=== PATIENT | female | born 1985 | race Caucasian/White ===

== ENCOUNTER → 2018-03-11 15:21 | Outpatient (CLI) | payer OTHER, SELFPAY ==
[2018-03-11 14:27] VITALS: BMI 20.2
[2018-03-11 15:52] LABS: Absolute Neutrophil Count 7.3 X10^3/uL (2.0-7.7); Basophil# 0.01 X10^3/uL; Basophil% 0.1 % (0-1); Eosinophil# 0.04 X10^3/uL; Eosinophils% 0.4 % (0-5); Hematocrit 35.4 % (37-47); Hemoglobin 12.5 g/dl (12.0-15.0); Lymphocyte % 20.1 % (19-41); Mean Corp Hgb Conc 35.3 g/gl (32-36); Mean Corpuscular Volume 87.8 fL (81-99); Mean Platelet Vol. 9.8 fl (6.2-12.0); Monocyte# 0.54 X10^3/uL; Monocyte% 5.4 % (0-10); Neutrophil # 7.33 X10^3/uL (2.7-7.7); Neutrophil % 73.9 % (47-70); Platelet Count 190 K/mm3 (150-450); RBC Distribution Width SD 45.1 fl (35.1-43.9); Red Blood Count 4.03 M/mm3 (4.2-5.4); White Blood Count 9.9 K/mm3 (4.4-11.0)
[2018-03-11 15:55] LABS: POSITIVE COUNT NO; POSITIVE DIFFERENTIAL NO; POSITIVE MORPHOLOGY NO
[2018-03-11 20:07] LABS: Chlamydia Trachomatis by PCR Negative (Negative); Neisserai gonorrhoeae by PCR Negative (Negative); Probe Check PASS; Sample Adequacy Control PASS; Specimen Processing Control PASS
[2018-03-12 00:13] LABS: HIV - WCH Non-Reactive (Nonreactive); Rubella IgG > 500.0 IU/mL
[2018-03-12 04:55] LABS: Rapid Plasmin Reagin (RPR) NONREACTIVE (NONREACTIVE)
[2018-03-15 11:34] LABS: HEPATITIS B SURFACE AG Negative (Negative)
--- OUTSIDE RECORDS SUMMARY | 2018-04-27 12:52 | XMS RPT_ITS ---
:1985 Author Organization OHIP Care Team Providers Name Role Phone MALA ESPOSITO, MS. DANILO Maria Attending Unavailable MALA ESPOSITO, MS. DANILO Maria Primary Care Unavailable DANY ARGUETA MD Attending Unavailable MALA ESPOSITO, MS. DANILO Maria Primary Care Unavailable LEXIE PERAZA Attending Unavailable LINDA VALERO Referring Unavailable DANILO MEDEIROS Primary Care Unavailable Linda Valero Attending Unavailable Linda Valero Attending Unavailable Linda Valero Referring Unavailable Danilo Medeiros GENERATION ENGINEERING TECHNOLOGIST-C Primary Care Unavailable PROBLEMS PROBLEMS DATE TYPE CONDITION / CODE ATTENDING STATUS SOURCE 03/11/2018 Unknown Z34.81 - Encounter Moses, Active [place] for supervision of [facility] , first Repository trimester / Z34.81(ICD-10) 08/03/2017 Admitting Encounter for KENDALL PARRA, Active [facility] Diagnosis gynecological DANY Foundation examination Repository (general) (routine) without abnormal findings / Z01.419(ICD-10) 08/03/2017 Admitting Encounter for KENDALL PARRA, Active [facility] Diagnosis screening for human DANY [facility] papillomavirus (HPV) Repository / Z11.51(ICD-10) PROCEDURES PROCEDURES No Procedure Records FoundRESULTS RESULTS CT/NG [facility] BY PCR Collected: 03/11/2018 Status: F Source: PATEROS 6:00 PM [facility] REPOSITORY TYPE CODE TESTS RESULT OUT OF RANGE REFERENCE UNITS LAB L8200.2100 Negative Normal Chlam Negative Trac PCR LAB L8200.2200 Negative Normal NG by Negative PCR Performed By: #### L8200.2000 #### [facility] [address] [place], [place], [address] Observed: 03/11/2018 Status: F Source: YOANA CULTURE, URINE 6:00 PM [facility] REPOSITORY Urine Culture ORGANISM 1: Mixed Gram Positive Organisms [place] Count 50,000-80,000 MIX CULTURE Mixed contaminants. Submit a new specimen if indicated. Performed By: #### M100.0650 #### [facility] [address] [place], [address] CBC W/DIFF, AUTOMATED Collected: 03/11/2018 Status: F Source: YOANA 3:33 PM [facility] REPOSITORY TYPE CODE TESTS RESULT OUT OF RANGE REFERENCE UNITS LAB L100.1000 4.4-11.0 K/mm3 Normal WBC 9.9 LAB L100.1200 4.2-5.4 M/mm3 Low RBC 4.03 LAB L100.1300 12.0-15.0 g/dl Normal HGB 12.5 LAB L100.1400 37-47 % Low HCT 35.4 LAB L100.1500 81-99 fL Normal MCV 87.8 LAB L100.1600 27.0-32.0 pg Normal MCH 31.0 LAB L100.1700 32-36 g/gl Normal MCHC 35.3 LAB L100.1810 11.6-14.6 % Normal RDW CV 14.0 LAB L100.1820 35.1-43.9 fl High RDW SD 45.1 LAB L100.1900 150-450 K/mm3 Normal PLT 190 LAB L100.2000 6.2-12.0 fl Normal MPV 9.8 LAB L100.2100 47-70 % High NEUT% 73.9 LAB L100.2200 19-41 % Normal LY% 20.1 LAB L100.2300 0-10 % Normal MONO% 5.4 LAB L100.2400 0-5 % Normal EO% 0.4 LAB L100.2500 0-1 % Normal BASO% 0.1 LAB L100.2550 0.0-0.9 % Normal IM GRAN % 0.100 Result Comment: IG% - Immature Granulocytes (promyelocytes, myelocytes and metamyelocytes) > 1% indicates that a LEFT SHIFT is Present. LAB L100.2620 2.0-7.7 X10 3/uL Normal Absolute Neut 7.3 LAB L100.2720 0.83-4.51 X10 3/ul Normal Absolute Lymph 2.00 Performed By: #### L100.0100 #### [facility] [address] [place], [address] TYPE AND SCREEN Collected: 03/11/2018 Status: F Source: PATEROS 3:33 PM [facility] REPOSITORY Order Comment: Reason for Type AND Screen/Red Cells: TYPE CODE TESTS RESULT OUT OF RANGE REFERENCE UNITS LAB B10.0800 A Normal BLOOD TYPE GEL POSITIVE LAB B100.4000 Normal Antibody NEGATIVE Screen Performed By: #### B101.7450 #### [facility] [address] [place], [place], [id number] RUBELLA IGG Collected: 03/11/2018 Status: F Source: PATEROS 3:33 PM [facility] REPOSITORY TYPE CODE TESTS RESULT OUT OF RANGE REFERENCE UNITS LAB L509.4000 IU/mL Normal Rubella IgG > 500.0 Result Comment: Antibody results Interpretation of Immune Status < 5 IU/ml Presumed Non-immune 5 - < 10 IU/ml Equivocal > or = 10 IU/ml Presumed Immune Performed By: #### L509.4000, L3890.6005 #### [facility] [address] [place], [address] HIV - [facility] Collected: 03/11/2018 Status: F Source: YONAA 3:33 PM [facility] REPOSITORY TYPE CODE TESTS RESULT OUT OF RANGE REFERENCE UNITS LAB L3890.6005 Nonreactive Normal HIV - [facility] Non-Reactive Performed By: #### L509.4000, L3890.6005 #### [facility] [address] [place], [place], [address] RAPID PLASMIN REAGIN Collected: 03/11/2018 Status: F Source: YOANA (RPR) 3:33 PM [facility] REPOSITORY TYPE CODE TESTS RESULT OUT OF REFERENCE UNITS RANGE LAB L700.5000 NONREACTIVE NONREACTIVE Normal RPR Performed By: #### L700.5000 #### [facility] [address] [place], [place], [address] HEPATITIS B SURFACE Collected: 03/11/2018 Status: F Source: YOANA AG 3:33 PM [facility] REPOSITORY TYPE CODE TESTS RESULT OUT OF RANGE REFERENCE UNITS LAB L3100.0400 Negative Normal HB Negative SURF AG Result Comment: Performed at: - [facility] [id number] Carton Gluing Machine Operator: Jaylon Huston PhD, Phone: [phone] Performed By: #### L3100.0390 #### [facility] (refer to report for specific site) refer to report for address and phone number LOOM OPERATOR APPRENTICE OFFICE VISIT Observed: 03/11/2018 Status: F Source: YOANA REPORT 3:19 PM [facility] REPOSITORY [facility] [address] [place], [place] [address] OFFICE VISIT Date of Service: 03/11/18 MR#: [id number] Acct: [id number] Name: NANCY GUZMAN Rep #: [id number] : 1985 Provider: Linda Valero MD Age/Sex: 32/F [place] [facility] Status: Signed Intake Vital Signs03/11/18 Height 5 ft 9 in 03/11/18 Weight: 137 lb 6 oz 03/11/18 Body Mass Index (BMI) 20.2 03/11/18 Blood Pressure 100/74 Intake Visit Reasons: CARLOS MG PT- WANTS LABS/US- 14 WKS Field Care Manager Required: No Is patient in pain?: No Allergies No Known Allergies Allergy (Unverified 03/11/18 14:28) Medications levocarnitine (bulk) powder ea MISCELLANEOUS DAILY g 03/11/18 [History Confirmed 03/11/18] vitamin B complex capsule 1 cap PO DAILY 03/11/18 [History Confirmed 03/11/18] Last Menstral Period: 11/28/17 Zika: Zika virus screening: Negative : No PFSH PFSH Medical History chronic low carniton (Acute) Surgical History [place] teeth extracted (Acute) Family History Mother Diabetes Father Hypertension Social History number of children: 3 current occupational status: unemployed current occupation: stay at home mom Smoking Status: Never smoker alcohol intake: never substance use type: does not use what type of physical activity do you participate in: walking, yoga frequency: 1-2 times per week seatbelt use: always do you feel safe at home: Yes additional social history: [employer] Pregancy History 4 Elective abortions Hx Para 3 Spontaneous abortions Past Pregnancies Del. DateName GA/Weeks Outcome Route Bth WeighInfant GeLabor LgtAnesthesiDel LocatProvider FOB t n h a n HPI CARLOS MG PT- WANTS LABS/US- 14 WKS: Details: NANCY GUZMAN is a 32 year old who presents for New OB visit. OB Visit Menstrual History Last Menstral Period: 11/28/17 Reported LMP: definite Normal amount/duration: Yes On hormonal BC at conception: No Antepartum Record Genetic Screening: Congenital Heart Defect: Other, Neural Tube Defect: Other, Hemoglobinopathy Or Carrier: Other, Cystic Fibrosis: Other, Chromosome Abnormality: Other, Surjit-Sachs: Other, Hemophilia: Other, Intellectual Disability/Autism: Other, Recurrent Loss/Stillbirth: Other, Other Structural Defect: Other, Other Genetic Disease: Other, Maternal Metabolic Disorder: Patient Comments/Counseling: maternal carnitine deficiency Infection History: Live with someone with TB or Exposed to TB: No, Patient or Partner has history of Genital Herpes: No, Rash or Viral illness since last mentrual period: No, Prior GBS-Infected child: No, History of STD: No, HIV Infection: No, History of Hepatitis: No, Recent travel outside of [place]: No, Concern for Hep exposure: No, Varicella immune: Yes Medical History Medical History: Negative: Diabetes, Hypertension, Heart disease, Auto-immune disorder, Kidney disease/UTI, Neurologic/epilepsy, Psychiatric, Depression/ depression, Hepatitis/liver disease, Varicosities/phlebitis, Thyroid dysfunction, Trauma/domestic violence, History of blood transfusions, D (Rh) Sensitized, Pulmonary (e.g.,TB,Asthma), Seasonal allergies, Drug/latex allergies/reactions, Breast, Boiler House Operator surgery, Operations/hospitalizations, Anesthetic complications, History of abnormal pap (last one july 2017- ), Uterine anomaly/juliet, Infertility, Anti-retroviral treatment, Relevant family history, Other ACOG First Trimester First Trimester: Desire for , Alcohol, Tobacco Cessation, Illicit/Recreational Drug/Substance Use, Intimate Partner Violence, Barriers to care, Unstable Housing, Communication Barriers, Environmental/Work Hazards, Anticipated Course of Care, Nurtrition and weight gain, Toxoplasmosis Precations, Use of Any medications, Sexual activity, Exercise, Dental Care, Sauna/Hot tub use, Seat Belt use, Childbirth classes/Hospital facilities, , Travel, Indications for US and Screening for Aneuploidy ROS Const Denies fever(s), Reports system reviewed and no additional complaints, except as docu, Reports fatigue Eyes Reports system reviewed and no additional complaints, except as docu ENT Reports system reviewed and no additional complaints, except as docu Card Denies chest pain, Denies shortness of breath Resp Reports system reviewed and no additional complaints, except as docu, Denies shortness of breath, Denies cough GI Reports nausea, Denies abdominal pain Reports system reviewed and no additional complaints, except as docu Musc Reports system reviewed and no additional complaints, except as docu Skin/Breast Reports system reviewed and no additional complaints, except as docu Neuro Yes system reviewed and no additional complaints, except as docu Psych Reports system reviewed and no additional complaints, except as docu Endo Reports fatigue, Reports system reviewed and no additional complaints, except as docu Exam Const General: healthy appearing, comfortable, no acute distress Orientation: alert HENMT Head: normal to inspection, atraumatic, normocephalic Ears: external ears normal, hearing grossly normal bilaterally Nose: nares normal, external nose normal Mouth: oral mucosae normal Teeth and gingiva: dentition normal Eyes General: appearance normal, both eyes and all related structures Neck Neck: no lymphadenopathy, supple, normal visual inspection Thyroid: thyroid normal Chest Chest palpation AND inspection: normal inspection of the chest Breast inspection: normal inspection of the breasts, normal inspection of the axillae Breast palpation: normal palpation of the breasts, normal palpation of the axillae Resp Effort AND Inspection: normal respiratory effort GI Inspection: normal to inspection Palpation: soft, no hepatosplenomegaly General: bladder normal to palpation External Female Exam: normal external appearance, normal appearance of the urethra Urethra: normal appearance of the urethra Speculum Exam - Vagina: normal appearance of the vagina, normal vaginal discharge Speculum Exam - Cervix: normal appearance of the cervix Bimanual Exam- Vagina AND Uterus: bladder normal to palpation, normal bimanual exam, uterus non-tender, other Bimanual Exam- Adnexa, other: adnexae non-tender Skin General: no rashes or lesions noted Neuro Motor: muscle tone normal throughout, no movement abnormalities noted Extrem General: normal to inspection, full ROM Assessment AND Plan Problems 1. Encounter for supervision of other normal in first trimester Z34.81 LV 09/04/18 gender surprise PC Bibiana Conte Rou husband Dustin Plan movement and labor precautions reviewed. ACOG trimester education reviewed and updated. see problem list details for updated plan management information and see below for orders placed at this visit. GA appropriate handout given. Supplemental Info ACOG book given and patient encouraged to read about nutrition, exercise, weight gain, and food avoidance in . Coding Level of Care Code OB Routine Diagnoses Encounter for supervision of other normal in first trimester Z34.81 Normal : other normal Trimester: first trimester 03/11/18 1519 <Electronically signed by Linda Valero MD> Date Linda Valero MD Cosigner Signature: Date (if applicable) CC: [facility] CYTOLOGY REPORT Observed: 08/03/2017 Status: F Source: [facility] 10:12 AM [facility] REPOSITORY . Pathology Reports Accession: Collected Date/Time: Received Date/Time: Pathologist: [id number] 08/03/2017 10:12 EDT 08/03/2017 18:00 EDT Boiler House Operator Cytology Report SPECIMEN: Specimen Description: Liquid Prep w/ HPV Specimen: Cervical/Endocervical Screening or Diagnostic: Screening RELEVANT HISTORY: LMP: 08-08-12 [id number] SPECIMEN ADEQUACY: SATISFACTORY FOR EVALUATION ENDOCERVICAL/TRANSFORMATIONAL ZONE COMPONENT PRESENT INTERPRETATION/RESULTS: NEGATIVE FOR INTRAEPITHELIAL LESION OR MALIGNANCY ADJUNCTIVE TESTING: HIGH RISK HPV DNA TESTING ORDERED, REPORT TO FOLLOW UNDER SEPARATE COVER Electronically Signed by Pathology report verified by [facility]. Screened by: KK Electronically signed by Rosa VERDUGO (ASCP) Sign-Out Date: 08/05/2017 13:33 Performing Lab: [facility], [address] [place] [address] Disclaimer The Pap test is a screening test for cervical cancer. As evidenced by published data, it is subject to both inherent false negative and false positive results. Your patient's results should be interpreted in context with pertinent clinical history including gynecological examination. Performed By: #### GYCR #### [place] [address] HPV Collected: 08/03/2017 Status: F Source: [facility] 10:12 AM [facility] REPOSITORY Order Comment: Order placed by AP_HPV_ORDER rule from [id number] TYPE CODE TESTS RESULT OUT OF REFERENCE UNITS RANGE LAB BFHPV(LOINC ) HPV Source Cervix LAB HPVINT(LOIN See Interp HPVN C) HPV Interp Result Comment: High Risk HPV Typing: NEGATIVE HPV types 16, 18, 31, 33, 35, 39, 45, 51, 52, 56, 58, 59, 66 and 68 DNA were undetectable or below the pre-set threshold. The kayla High-Risk HPV DNA Test is not intended for use as a screening device for Pap normal women under age 30 and is not intended to substitute for regular Pap screening. The kayla High-Risk HPV DNA Test is designed to augment existing methods for the detection of cervical disease and should be used in conjunction with clinical information derived from other diagnostic and screening tests, physical examinations and full medical history in accordance with appropriate patient management procedures. NOTE: A negative result does not preclude the presence of HPV infection because results depend on adequate specimen collection, absence of inhibitors and sufficient DNA to be detected. See Interp HPVN Performed By: #### HPV #### [facility] [address] [place] [address] CARN Collected: 05/08/2017 Status: F Source: [facility] 8:31 AM [facility] REPOS[facility] TYPE CODE TESTS RESULT OUT OF REFERENCE UNITS RANGE LAB FRC00(LOIN 22-52 umol/l C) Carnitine Free 16 Result Comment: Performed By: [facility] [employer] [facility] [place] [address] Carton Gluing Machine Operator: Shruthi Chen M.D. CLIA#: [id number] Phone#: LAB TC00(LOINC) 27-66 umol/l Carnitine Total 20 Result Comment: Performed By: [facility] [employer] [facility] [place] [address] Carton Gluing Machine Operator: Shruthi Chen M.D. CLIA#: [id number] Phone#: LAB FTCRAT(LOINC) 0.7-0.9 Carnitine FT 0.800 Ratio Result Comment: Performed By: [facility] [employer] [facility] [place] [address] Carton Gluing Machine Operator: Shruthi Chen M.D. CLIA#: [id number] Phone#: LAB REVCAR(LOINC) Carnitine Review Reviewed by Madisyn Mendosa, Ph.D. Result Comment: Performed By: [facility] [place] [address] Carton Gluing Machine Operator: Shruthi Chen M.D. CLIA#: [id number] Phone#: LAB CARNIN(LOINC) Carnitine Interp (NOTE) Result Comment: This assay of plasma free and total carnitine shows low levels of both free and total carnitine with a normal free:total carnitine ratio. NOTE: The determination of the plasma free carnitine level and of the total free and acylcarnitine levels is dependent on multiple factors, including the nutritional status of the subject, his/her underlying disorder, concurrent illnesses and, sometimes, medications that he/she is receiving. Consequently, a normal or minimally abnormal result with this test does not always rule-out the possibility of a disorder of carnitine or fatty acid metabolism. This test does not by itself provide information on the levels of various plasma acylcarnitine species and measurement of the latter is often needed for the diagnostic evaluation and follow-up of disorders of mitochondrial fatty acid beta-oxidation and some other disorders associated with pathologic levels of selected acylcarnitine species. This test was developed and its performance characteristics determined by the Pathology and Laboratory Medicine [facility] at the [facility]. The U.S. Food and Drug Administration has not approved or cleared this test, however, FDA clearance or approval is not currently required for clinical use. Performed By: [facility] [address] [place] [address] Carton Gluing Machine Operator: Shruthi Chen M.D. [facility]#: [id number] Phone#: Performed By: #### CARN #### Cindy [address] [address] ALLERGIES ALLERGIES DATE TYPE / CODE NAME / CODE REACTION SEVERITY SOURCE 03/11/2018 Drug No Known Unknown [facility] Allergy/4160 Allergies/F00 Hospital [address](SNOMED 6011944(RXNOR Repository CT) M) ENCOUNTERS ENCOUNTERS ADMIT/DISCHARGE ACCOUNT NUMBER ADMITTING ENCOUNTER LOCATION SOURCE CLASS 04/05/2018/04/05/19 [id number] Ambulatory Building:[address] Repository 03/11/2018 [id number] Ambulatory [facility] ding:PAVLAB Repository 03/11/2018/03/11/20 [id number] Ambulatory BMSBuilding: [address] Repository 08/03/2017/08/08/19 [id number] Ambulatory [address] ding:[facility] Repository 05/08/2017/05/08/[id number] [facility] PAYERS PAYERS ENCOUNTER GUARANTOR PAYER SUBSCRIBER SOURCE 04/05/2018 NANCY L Primary RAFAELA [facility] STEINERDOB: Insurance:MEDICAL STEINERDOB: [facility] [id number] Repository ROCHELLE Number: [place] [id number], [place] [address]Fpv: ([phone]) Date: [phone] () 04/05/2018 Secondary RAFAELA [facility] Insurance:MEDICAL STEINERDOB: [facility] [id number] Repository Number: [place] [id number] [place], [place] Date: [address] 03/11/2018 NANCY L Primary RAFAELA Yoana [id number] Insurance:MEDICAL STEINERDOB: [facility] [id number], [place] Number: Repository [address]Rge: 330 [id number] [phone] () Date:[id number] [address] [address]JK: 03/11/2018 Secondary NOT GIVENUNK Yoana Insurance:SELF PAY [facility] Number: Effective Repository Date:2018-03-11 03/11/2018 NANCY Primary RAFAELA [place] [id number] Insurance:MEDICAL STEINERDOB: [facility] [id number], [place] Number: Repository [address]Urd: 330 [id number] [phone] (HP) Date:[id number] [phone]: 03/11/2018 Secondary NOT GIVENUNK Yoana Insurance:SELF PAY [facility] Number: Effective Repository Date:2018-03-11 08/03/2017 NANCY L Primary [facility] STEINERDOB: Insurance:MEDICAL STEINERDOB: [facility] [address] [id number] Repository [place]HELLE Number: [id number] [place], [email or web address] Date:2017-08-03 [address]Gmg: [email or web address]: [id number] Name:BPO BOX (HP)Tel: (000) (HP)Tel: [phone] [place] [phone] (WP) [phone] (WP) [phone]: 05/08/2017 N[facility]: [facility] [id number] [place] [id number] [id number] [facility]ository [facility] Number: [id number] [place], [email or web address] Date:2017-05-08 837[address]Mkh: [email or web address]: [id number] Name:BPO BOX (HP)Tel: (000) (HP)Tel: [phone] [facility] [place] [phone] (WP) [phone] ([phone]:
== END ==
PROVIDERS: Family Provider Nurse Practitioner Primary Care; PCP Nurse Practitioner Primary Care; Referring Provider Obstetrics & Gynecology; Visit Provider Obstetrics & Gynecology
DX: Z34.81 Encounter for supervision of other normal pregnancy, first trimester (principal)
CPT/HCPCS: 36415; 85025; 86592; 86703; 86762; 86850; 86900; 87086; 87088; 87340; 87491; 87591

== ENCOUNTER → 2021-02-18 13:27 | Outpatient (CLI) | payer OTHER, SELFPAY ==
--- NOTE | 2021-02-18 13:31 | US_ITS ---
STUDY: SECOND AND THIRD TRIMESTER OBSTETRICAL ULTRASOUND REASON FOR EXAM: Female, 35 years old routine survey LMP: 09/24/2020 TECHNIQUE: Transabdominal and Transvaginal TECHNICAL QUALITY: Adequate. PRIOR ULTRASOUND: None. FINDINGS: There is a single intrauterine fetus. The fetus is in a transverse lie with the head on the maternal right side. There is demonstrated cardiac activity with a heart rate of 137 bpm. There is a normal amniotic fluid volume. The largest amniotic fluid pocket measures 4.3 cm. The placenta is posterior in location and is not low lying. There are Grade 0 placental changes. The cervix measures 3.9 cm in length. The bilateral adnexal regions are normal. BIOMETRY: BPD: 4.7 cm: 20 weeks, 1 days HC: 18.1 cm: 20 weeks, 3 days AC: 16.3 cm: 21 weeks, 2 days FL: 3.8 cm: 22 weeks, 0 days age by current US: 20 weeks, 5 days. LV by current US: 07/03/2021. Estimated weight: 429 grams, +/- 64 grams, 71 %. Age by LMP: 21 weeks, 0 days. LV by LMP: 07/01/2021. ANATOMY: Cranium: Normal lateral ventricles. Normal choroid plexus. Normal cerebellum. Normal cisterna magna. Normal face, nose and lips. Chest: Normal 4-chamber heart. Abdomen/Pelvis: Normal diaphragm. Normal stomach. Normal abdominal wall. Normal cord insertion. Normal 3 vessel cord. Normal kidneys. Normal bladder. Spine: Normal cervical spine. Normal thoracic spine. Normal lumbar spine. Normal sacrum. Extremities: Normal bilateral upper extremities. Normal bilateral lower extremities. US/OB Anatomy Scan IMPRESSION: A single live intrauterine at 20 weeks, 5 days by current ultrasound with LV of 07/03/2021. Heart rate at 137 bpm. No suspicious sonographic findings. Electronically Signed: Chon Veronica MD at 17:02 EST , Service support ,
[2021-02-18 14:37] LABS: Absolute Lymphocyte Count 1.71 X10^3/uL (0.83-4.51); Absolute Neutrophil Count 6.9 X10^3/uL (2.0-7.7); Basophil# 0.01 X10^3/uL; Basophil% 0.1 % (0-1); Eosinophil# 0.05 X10^3/uL; Eosinophils% 0.5 % (0-5); Hemoglobin 11.7 g/dL (12.0-15.0); Lymphocyte # 1.71 X10^3/ul (0.83-4.51); Lymphocyte % 18.3 % (19-41); Mean Corp Hgb Conc 34.4 g/dL (32-36); Mean Corpuscular Hgb 31.5 pg (27.0-32.0); Mean Corpuscular Volume 91.4 fL (81-99); Mean Platelet Vol. 10.6 fl (6.2-12.0); Monocyte# 0.62 X10^3/uL; Monocyte% 6.7 % (0-10); NRBC Flagged by Analyzer 0 % (0-5); Neutrophil # 6.87 X10^3/uL (2.7-7.7); Neutrophil % 73.8 % (47-70); Platelet Count 198 K/mm3 (150-450); RBC Distribution Width SD 42.5 fl (35.1-43.9); Red Blood Count 3.72 M/mm3 (4.2-5.4); White Blood Count 9.3 K/mm3 (4.4-11.0)
== END ==
PROVIDERS: PCP Nurse Practitioner Primary Care; Referring Provider Obstetrics & Gynecology; Visit Provider Obstetrics & Gynecology
DX: Z34.90 Encounter for supervision of normal pregnancy, unspecified, unspecified trimester (principal); Z64.1 Problems related to multiparity
CPT/HCPCS: 36415; 76805; 76817; 85025